=== PATIENT | female | born 1990 ===

== ENCOUNTER 2017-12-26 18:14 | Emergency (ER) | payer BC ==
[2017-12-26] MEDS ORDERED: MAGNESIUM HYDROXIDE/AL HYDROX 30 ML, LIDOCAINE VISC 2% 200 MG PO ONE ×2 (18:50)
[2017-12-26] MEDS ORDERED: 0.9 % SODIUM CHLORIDE 1,000 ML BAG IV ONE (18:50)
--- NOTE | 2017-12-26 18:50 | Emergency Department Record ---
History of Present Illness - General Chief Complaint: Chest Pain Stated Complaint: CHEST TIGHTNESS Time Seen by Provider: 12/26/17 18:42 Source: Patient Mode of Arrival: Ambulatory Limitations: No limitations - History of Present Illness Initial Comments: 27 yo female presents with a pressure feeling in the epigastrium and chest. The onset was about 3pm. No shortness of breath. No cough. No fever. She has been taking daily ibuprofen for headaches. No recent illness. No history of the same. She is a non smoker. No control. No history of CAD,PE, cardiac or pulmonary disease. She is normally healthy. She does have reflux. She take omeprazole. MD Complaint: Chest pain Onset/Timin -: Hour(s) Pain Location: Substernal, Left chest Severity scale (1-10): 8 Quality: Heaviness, Tightness Consistency: Constant Improves With: Nothing Worsens With: Nothing Context: Other (taking ibuprofen for headaches) Other Symptoms: Other (reflux) Treatments Prior to Arrival: None - Related Data Previous Rx's Medication Instructions Recorded Sucralfate [Carafate] 1 g PO BID #[id number] [facility] [place] 12/26/17 Allergies Allergy/AdvReac Type Severity Reaction Status Date / Time Latex, Natural Rubber Allergy Mild hives Verified 12/26/17 18:22 Travel Screening - Travel/Exposure Within Last 30 Days Have you traveled within the last 30 days?: No Review of Systems Constitutional: Denies: Chills, Fever, Malaise, Weakness Eyes: Denies: Eye discharge ENT: Denies: Congestion, Throat pain Respiratory: Denies: Cough, Dyspnea, Hemoptysis, Stridor, Wheezes Cardiovascular: Reports: Chest pain. Denies: Dyspnea on exertion, Edema, Palpitations, Syncope Endocrine: Denies: Fatigue, Polydipsia, Polyuria Gastrointestinal: Reports: Abdominal pain (epigastricc), Other (reflux). Denies : Diarrhea, Melena, Nausea, Vomiting Genitourinary: Denies: Dysuria, Urgency Musculoskeletal: Denies: Arthralgia, Back pain, Joint swelling, Myalgia Skin: Denies: Bruising, Change in color, Rash Neurological: Denies: Headache, Numbness, Weakness Psychiatric: Denies: Anxiety Hematological/Lymphatic: Denies: Blood Clots, Easy bleeding, Easy bruising, Swollen glands Past Medical History - SOCIAL HISTORY Smoking Status: Never smoker Alcohol Use: Occasional Drug Use: None - RESPIRATORY Hx Respiratory Disorders: No - CARDIOVASCULAR Hx Cardio Disorders: No - NEURO Hx Neuro Disorders: No - GI Hx GI Disorders: Yes Hx Reflux: Yes - Hx Genitourinary Disorders: No - ENDOCRINE Hx Endocrine Disorders: No - MUSCULOSKELETAL Hx Musculoskeletal Disorders: No - PSYCH Hx Psych Problems: No - HEMATOLOGY/ONCOLOGY Hx Hematology/Oncology Disorders: No Family Medical History Any Significant Family History?: Yes Family Hx Comment (NOT TO BE USED IN PLACE OF ITEMS BELOW): grandmothers both with pacemakers Hx Heart Disease: Mother Physical Exam - General General Appearance: Alert, Oriented x3, Cooperative, No acute distress Limitations: No limitations - Head Head exam: Normal inspection - Eye Eye exam: Normal appearance. negative: Conjunctival injection - ENT ENT exam: Normal exam, Mucous membranes moist Ear exam: Normal external inspection Nasal Exam: Normal inspection Mouth exam: Normal external inspection Teeth exam: Normal inspection Throat exam: Normal inspection - Neck Neck exam: Normal inspection, Full ROM. negative: Tenderness - Respiratory Respiratory exam: Normal lung sounds bilaterally. negative: Respiratory distress, Rhonchi, Stridor, Wheezes - Cardiovascular Cardiovascular Exam: Regular rate, Normal rhythm, Normal heart sounds. negative : Diastolic murmur, Systolic murmur Peripheral Pulses: 2+: Radial (R), Radial (L) - GI/Abdominal GI/Abdominal exam: Soft, Tenderness (tender epigastric). negative: Distended, Guarding, Rebound, Rigid - Rectal Rectal exam: Deferred - exam: Deferred - Extremities Extremities exam: Normal inspection, Full ROM, Normal capillary refill. negative: Pedal edema, Tenderness - Back Back exam: Reports: Normal inspection, Full ROM. Denies: Muscle spasm, Rash noted, Tenderness - Neurological Neurological exam: Alert, Normal gait, Oriented X3 - Psychiatric Psychiatric exam: Normal affect, Normal mood. negative: Agitated, Anxious - Skin Skin exam: Dry, Intact, Normal color, Warm Course Vital Signs 12/26/17 18:17 Temperature 98.1 F Pulse Rate 81 Respiratory 20 Rate Blood Pressure 142/85 Pulse Ox 96 - Reevaluation(s) Reevaluation #1: EKG NSR rate 72, intervals normal, axis normal, ST normal. NORMAL EKG 12/26/17 18:51 12/26/17 19:09 The CBC was reviewed No acute changes UA. No infection noted. 12/26/17 19:32 No acute changes on the CMP No acute changes on the Lipase The UCG is negative The patient reports relief with GI cocktail The patient has a normal ekg, tender (mild) epigastrium, no risk factors for premature CAD, PE, SCD Will recommend stopping ibuprofen and can take Tylenol or mild pain She is to follow up with her PCP. We discuss reasons to return and home care. Medical Decision Making - Lab Data Result diagrams: 12/26/17 18:30 12/26/17 18:30 Disposition Disposition: Discharge Clinical Impression: Epigastric pain, Atypical chest pain Disposition: Home, Self-Care Condition: (1) Good Instructions: Chest Pain (ED), Epigastric Pain (ED) Additional Instructions: Stop Ibuprofen as this may be causing your symptoms Call your doctor for close follow up of this ER visit and your tests Take the Carafate as directed for the next week Prescriptions: Sucralfate [Carafate] 1 g PO BID #200 [facility] Forms: Patient Portal Access Time of Disposition: 19:35 Quality - Quality Measures Quality Measures: N/A - Blood Pressure Screening Does Patient Have Any of the Following: No Blood Pressure Classification: Pre-Hypertensive BP Reading Systolic Measurement: 142 Diastolic Measurement: 85 Screening for High Blood Pressure: < Pre-Hypertensive BP, F/U Documented > [ [id number]] Pre-Hypertensive Follow-up Interventions: Referral to alternative/primary care provider.
[2017-12-26 19:05] LABS: URINE APPEARANCE CLEAR; URINE BILIRUBIN NEGATIVE (NEGATIVE); URINE BLOOD NEGATIVE (NEGATIVE); URINE COLOR YELLOW; URINE GLUCOSE (UA) NEGATIVE (NEGATIVE); URINE KETONE 15 mg/dL (NEGATIVE); URINE LEUKOCYTE ESTERASE NEGATIVE (NEGATIVE); URINE NITRITE NEGATIVE (NEGATIVE); URINE PROTEIN NEGATIVE (NEGATIVE); URINE UROBILINOGEN 0.2 E.U./dL (0.20 - 1.00)
[2017-12-26 19:07] LABS: BASO % 0.2 % (0-6); EOS % 0.4 % (0-6); HEMATOCRIT 40.3 % (35.0-47.0); HEMOGLOBIN 13.4 gm/dl (11.6-16.0); LYMPH % 30.9 % (16-45); MEAN CELL VOLUME 90.8 fl (81-97); MEAN CORPUSCULAR HEMOGLOBIN 30.2 pg (27-33); MEAN CORPUSCULAR HGB CONC 33.3 g/dl (32-36); MEAN PLATELET VOLUME 10.6 fl (7.4-10.4); MONO % 6.5 % (0-9); PLATELET COUNT 317 K/uL (130-400); RED BLOOD COUNT 4.44 M/uL (3.80-5.40); RED CELL DISTRIBUTION WIDTH 12.2 % (11.5-14.5); WHITE BLOOD COUNT W/O DIFF 9.5 K/uL (4.2-12.2)
[2017-12-26 19:21] LABS: BLOOD UREA NITROGEN 8 mg/dL (6-20); CREATININE 0.5 mg/dL (0.5-0.9); EST GLOMERULAR FILTRATION RATE > 60 mL/min
[2017-12-26 19:22] LABS: TOTAL PROTEIN 7.1 g/dL (6.6-8.7)
[2017-12-26 19:24] LABS: GLUCOSE,RANDOM 81 mg/dL (74-109)
[2017-12-26 19:26] LABS: ALB/GLOB RATIO 1.6 (1.1-1.8); ALBUMIN 4.4 g/dL (4.0-5.0); ALT/SGPT 17 U/L (<33); AST/SGOT 16 U/L (10.0-35.0)
[2017-12-26 19:27] LABS: ALKALINE PHOSPHATASE 71 U/L (35-104); LIPASE 18 U/L (13-60)
[2017-12-26 19:35] LABS: HCG,QUALITATIVE URINE NEGATIVE (NEGATIVE)
== END 2017-12-26 19:46 | disposition home or self-care (01) ==
LOC: ER 18:14
DX: R07.89 Other chest pain (principal); R10.13 Epigastric pain; R51 Headache; R19.7 Diarrhea, unspecified
CPT/HCPCS: 80053; 81003; 81025; 83690; 85025; 93005; 93010; 96360; 99284; J7030

== ENCOUNTER 2018-11-30 07:28 | Day surgery (SDC) | payer BC ==
[2018-11-30] MEDS ORDERED: FENTANYL PF 100MCG/2ML VIAL IV ONE (07:29)
[2018-11-30] MEDS ORDERED: PROPOFOL 10 MG/ML VIAL IV ONE (07:29)
[2018-11-30] MEDS ORDERED: LIDOCAINE 2% MDV (20MG/ML) 20ML VIAL IV ONE (07:29)
--- NOTE | 2018-12-03 08:20 | Operative Note ---
DATE OF SURGERY: 11/30/2018 SURGEON: La Nena Pardo MD OPERATION: ESOPHAGOGASTRODUODENOSCOPY. INDICATIONS: This is a 28-year-old female with history of epigastric pain who presented for esophagogastroduodenoscopy. POSTOPERATIVE DIAGNOSES: 1. Normal esophagus. 2. Diffuse gastritis with several gastric antral ulcers. 3. Normal duodenum. ANESTHESIA: Sedation is per Anesthesia. Pulse oximetry was monitored throughout the procedure to maintain O2 saturation of 90% or greater. Supplemental oxygen was administered via nasal cannula. Cardiac and vital signs were monitored throughout the duration of the procedure, and they were stable. The procedure of esophagogastroduodenoscopy and risks and benefits of the procedure, including the risk of bleeding and perforation, among others, were explained to the patient who voiced understanding and agreed to have the procedure done. Physical examination was performed, and the patient was found stable for sedation. PROCEDURE: The patient was placed in the left lateral position. Sedation was initiated. A plastic bite block was inserted into the oral cavity. The Olympus [id number] gastroscope was introduced into the oral cavity and advanced to the proximal esophagus without difficulty. The esophageal mucosa was carefully examined upon introduction of the gastroscope. The proximal and mid and distal esophageal mucosa appeared normal. The gastroscope was then advanced into the stomach, and surveillance of the stomach revealed diffuse erythema along the gastric body and antrum with several gastric antral ulcers that were noted. The gastroscope was then advanced to the descending duodenum without difficulty. The duodenal bulb and descending duodenum appeared normal. The gastroscope was then withdrawn into the stomach and retroflexion was performed. There were no other lesions noted. The gastroscope was then straightened and withdrawn while carefully examining the gastric and esophageal mucosa. No other lesions noted. Multiple gastric and duodenal biopsies were obtained. The patient remained with stable vital signs and was transferred to the recovery room. RECOMMENDATIONS: 1. I will start her on proton pump inhibitor. 2. The patient should have a repeat esophagogastroduodenoscopy in about 3 months to assess the healing of the ulcers. Thank you for allowing me to participate in the care of your patient. CC: TEZ Roberts
== END 2018-11-30 08:45 | disposition home or self-care (01) ==
LOC: HOP 07:28
PROVIDERS: ATTEND Internal Medicine Gastroenterology
DX: Z87.19 Personal history of other diseases of the digestive system (principal); K29.70 Gastritis, unspecified, without bleeding; K25.9 Gastric ulcer, unspecified as acute or chronic, without hemorrhage or perforation
CPT/HCPCS: 43239; 00731; 81025; J3010

== ENCOUNTER 2019-02-15 06:49 | Day surgery (SDC) | payer BC ==
[2019-02-15] MEDS ORDERED: PROPOFOL 10 MG/ML VIAL IV ONE (06:50)
[2019-02-15] MEDS ORDERED: FENTANYL PF 100MCG/2ML VIAL IV ONE (06:50)
[2019-02-15] MEDS ORDERED: LIDOCAINE 2% MDV (20MG/ML) 20ML VIAL IV ONE (06:50)
[2019-02-15] MEDS ORDERED: ONDANSETRON HCL IV 4 MG/2 ML VIAL IVP ONE (06:50)
== END 2019-02-15 09:02 | disposition home or self-care (01) ==
LOC: HOP 06:49
PROVIDERS: ATTEND Internal Medicine Gastroenterology
DX: R19.4 Change in bowel habit (principal); R19.7 Diarrhea, unspecified; Z87.19 Personal history of other diseases of the digestive system; K20.8 Other esophagitis; K21.9 Gastro-esophageal reflux disease without esophagitis
CPT/HCPCS: 45380; 43239; 00813; 81025; J2405; J3010